=== PATIENT | male | born 2000 | race Caucasian/White ===

== ENCOUNTER 2022-12-18 17:14 | Inpatient (IN) ==
[2022-12-18] MEDS ORDERED: SODIUM CHLORIDE 0.9% 1000ML 1,000 ML IV ONE (17:28)
[2022-12-18] MEDS ORDERED: KETOROLAC TROMETHAMINE 15 MG/ML VIAL IV STA ×2 (17:28→18:59)
[2022-12-18] MEDS ORDERED: ONDANSETRON INJ 2 MG/ML 2 ML VIAL ONE (17:32)
[2022-12-18] MEDS ORDERED: ONDANSETRON INJ 2 MG/ML 2 ML VIAL IV STA (17:33)
[2022-12-18 18:45] LABS: BUN Creatinine Ratio 6.9 (10-20); Creatinine Clr Calc Pharmacy 138.9 ml/min; Est GFR (African American) 120.4 ml/min; Est GFR (Non-African American) 103.8 ml/min; Potassium 3.4 mmol/L (3.5-5.1)
--- NOTE | 2022-12-18 19:51 | Urology Consultation ---
Date of Consultation December 18, 2022 Assessment & Plan (1) Ureterolithiasis: Due to the imaging noted during patient's previous emergency department visit and his ongoing pain the treating emergency room physician is having admitted the hospital service. We recommend proceeding as follows: Provide analgesics Provide antiemetics Continue hydration measures with IV fluids Continue Flomax for expulsive therapy Recommend straining all urine so any past kidney stones can be properly analyzed There is no evidence of urinary tract infection so antibiotics should not be required at this time Recommend making the patient n.p.o. after midnight. If patient continues to have persistent pain that is unbearable cystoscopy may be required. At the present time he is afebrile, normotensive, without tachycardia, and afebrile. He also does not have leukocytosis on his previous labs and therefore an emergent procedure is not required. I did discuss with the patient there is a chance that he could pass the kidney stone overnight. If he is able to pass the kidney stone procedure intervention will not be required Additional recommendations be forthcoming based on his clinical course as unfolds Supervising Physician Co-Signing Physician Notes Discussed patient with SATINDER. Agree with plan. Reviewed patients chart. 4mm mid to distal right ureteral calculus. Would typically recommend medical expulsive therapy given size and location, however patient's pain is not tolerated. Reasonable to re-evaluate in the morning and offer stent, however this likely will also cause discomfort and patient will need second procedure for stone treatment in the future if stented. History of Present Illness Reason for Consultation: Nephrolithiasis History of Present Illness This is a 22-year-old male who presented to [facility] emergency department earlier today secondary to right lower quadrant abdominal pain that began at approximately that began earlier this morning. The patient says he has never had pain this severe before. He did admit to some slight right flank pain. He had associated nausea and vomiting but did not have any fevers. He did admit to an occasional shake or chill. He denies any dysuria or hematuria. Because of this problem he presented to the emergency department. During the patient's previously noted emergency department visit earlier today he underwent a CT scan that showed patient had a 4 mm calcification in the distal right ureter consistent with a nephrolithiasis. There is no associated hydronephrosis. Labs during this visit include a CBC were white blood cell count, hemoglobin, hematocrit, and platelet count were normal. Chemistry profile showed sodium, potassium, BUN, and creatinine were normal. Urinalysis at that time was negative for nitrites and did show trace leukocyte Estrace. There were 5-10 white blood cells per high-power field but no bacteria. During this visit the patient was treated with analgesics and antiemetics. In addition the patient was given Flomax for expulsive therapy. He was discharged home with prescriptions for oxycodone, ibuprofen, Flomax, and Zofran. He was instructed to follow-up with [facility] physician group urology. Since discharge from the emergency department the patient says that he was initially doing well on to have his pain as described above returned in a similar fashion. He said that the pain was unbearable so he presented to the hospital again. He again denies any fevers but has had occasional shakes and chills. He has associated nausea and vomiting when the pain comes. He does note that the pain comes and goes in waves. Again he denies any dysuria or bg turia. The patient did have a repeat chemistry profile since arrival to the emergency department where sodium was 137 and his potassium was 3.4. BUN and creatinine remain normal. A COVID test is negative. Since arrival back to the emergency department he has been given analgesics and IV fluids and due to the unremitting nature of the pain he is requesting admission to the hospital. Concerning past surgical history the patient reports he has had an appendectomy The patient denies any past medical problems. He denies any allergies He is a non-smoker Allergies Allergy/AdvReac Type Severity Reaction Status Date / Time No Known Allergies Allergy Verified 12/18/22 18:54 Home Medications Medication Instructions Recorded Confirmed Type ibuprofen 800 mg tablet 800 mg PO Q8H PRN pain #30 tabs 12/18/22 12/18/22 Rx ondansetron 4 mg disintegrating 4 mg PO Q6H PRN nausea and 12/18/22 12/18/22 Rx tablet vomiting #14 tabs oxycodone 5 mg tablet 5 mg PO Q4H PRN pain #14 tabs 12/18/22 12/18/22 Rx tamsulosin 0.4 mg capsule 0.4 mg PO DAILY #10 caps 12/18/22 12/18/22 Rx Patient History Social History Smoking Status: Never smoker Preferred Language: Ecuadorean Feels Safe at Home: Yes Review of Systems Constitutional: + chills; no fever Eyes: + corrective lenses Ear, Nose, Mouth, Throat: no ear pain Respiratory: no cough and no dyspnea Cardiovascular: no chest pain Gastrointestinal: + abdominal pain, + nausea and + vomiting Genitourinary: + as per Subjective / HPI Musculoskeletal: + back pain (Intermittent right flank pain) Integumentary: no rash Neurologic: no generalized weakness Physical Exam Constitutional: WD/WN, vitals as above Eyes: no conjunctival abnormality ENMT: Ears: no hearing impairment and no external ear abnormality Mouth: no oropharynx abnormality Neck: trachea midline Respiratory: normal respiratory effort; no respiratory distress and no labored breathing Cardiovascular: Rate/Rhythm: regular rate and regular rhythm Gastrointestinal (Abdomen): Abdomen is soft, nonrigid, nondistended. At the time of my interview there is no rebound tenderness or guarding. There is no pain with palpation except for slight pain in the right lower quadrant with palpation. There is no CVA tenderness to percussion bilaterally. Musculoskeletal: No calf tenderness Skin: no rashes Neurologic: moves all extremities Psychiatric: A+Ox3, euthymic affect Results & Data Vital Signs (Past 12 Hours) Vital Signs Temp Pulse Pulse Resp BP BP Pulse Ox 12/18/22 19:14 65 20 157/83 H 99 12/18/22 17:28 65 20 100 12/18/22 17:28 20 98 12/18/22 17:21 36.4 C L 88 26 H 158/72 H 100 O2 Del Method 12/18/22 19:14 Room Air 12/18/22 17:28 Room Air 12/18/22 17:28 Room Air 12/18/22 17:21 Room Air PG Care Time/CCT Total # of Minutes Spent Total Time Spent with Patient: Total time spent is greater than 50% in coordination of care (as documented) at patient's floor/unit and/or counseling patient: Coding Level of Care Code 69017 IN/OBS CONSULT LVL 5,80M Diagnoses Ureterolithiasis N20.1
[2022-12-18] MEDS ORDERED: BACLOFEN 10 MG TAB PO STA (21:06)
--- NOTE | 2022-12-18 21:59 | Emergency Department Note ---
History of Present Illness General Chief Complaint: Kidney Stone Stated Complaint: KIDNEY STONE,FEEL NEAR SYNCOPE,UNABLE TO MOVE HAND Time Seen by Provider: 12/18/22 17:28 History of Present Illness Provider Complaint: flank pain (R) Onset (ago): 1 day(s) Pain Consistency: constant Location: R flank Radiation: RLQ Maximum Pain Intensity: 6 Current Pain Intensity: 6 Quality: + stabbing and + sharp Relieved By: + nothing Exacerbated By: + nothing Context: no foreign travel, no possible food poisoning, no sick contacts, no recent antibiotic use, no recent surgery/procedure or no recent injury Associated Symptoms: + nausea and + vomiting; no fever, no chills, no constipation, no dysuria, no hematemesis, no hematochezia, no melena, no hematuria and no headache Patient states he was seen here today and diagnosed with kidney stone. Home Medications Medication Instructions Recorded Confirmed Type ibuprofen 800 mg tablet 800 mg PO Q8H PRN pain #30 tabs 12/18/22 12/18/22 Rx ondansetron 4 mg disintegrating 4 mg PO Q6H PRN nausea and 12/18/22 12/18/22 Rx tablet vomiting #14 tabs oxycodone 5 mg tablet 5 mg PO Q4H PRN pain #14 tabs 12/18/22 12/18/22 Rx tamsulosin 0.4 mg capsule 0.4 mg PO DAILY #10 caps 12/18/22 12/18/22 Rx Allergies Allergy/AdvReac Type Severity Reaction Status Date / Time No Known Allergies Allergy Verified 12/18/22 18:54 Past Med/Surg History Medical History Hydronephrosis due to obstruction of ureter No pertinent family history Surgical History No pertinent past surgical history Social History Smoking Status: Never smoker Preferred Language: Malay Feels Safe at Home: Yes Physical Exam Vital Signs: Vital Signs - 24 hr 12/18/22 17:21 12/18/22 17:28 12/18/22 17:28 Temperature 36.4 C L Temperature Source Temporal Artery Sc an Pulse Rate 88 65 Pulse Rate [Finger ] Pulse Rhythm Regular Pulse Rhythm [Fing er] Pulse Strength [Fi nger] Respiratory Rate 26 H 20 20 Respiratory Effort / Characteristics Non-Labored Sponta neous Non-Labored Sponta neous Respiratory Depth Normal Normal Respiratory Patter n Blood Pressure 158/72 H Blood Pressure [Ri ght Arm] Blood Pressure Jeanine n 100 Blood Pressure Jeanine n [Right Arm] Blood Pressure Pos ition [Right Arm] Pulse Oximetry 100 98 100 Oxygen Delivery Me thod Room Air Room Air Room Air Sepsis Recent Feve r Within 48 Hours No Sepsis New/Unexpla ined Change in Men mak Status No Sepsis Action Take n by Nursing No Action Required 12/18/22 19:14 12/18/22 20:00 12/18/22 21:17 Temperature Temperature Source Pulse Rate Pulse Rate [Finger ] 65 79 68 Pulse Rhythm Pulse Rhythm [Fing er] Regular Regular Regular Pulse Strength [Fi nger] Normal Normal Normal Respiratory Rate 20 18 20 Respiratory Effort / Characteristics Non-Labored Sponta neous Non-Labored Sponta neous Non-Labored Sponta neous Respiratory Depth Normal Normal Normal Respiratory Patter n Regular Regular Regular Blood Pressure Blood Pressure [Ri ght Arm] 157/83 H 147/82 H 164/88 H Blood Pressure Jeanine n Blood Pressure Jeanine n [Right Arm] 107 103 113 Blood Pressure Pos ition [Right Arm] Sitting Sitting Sitting Pulse Oximetry 99 100 98 Oxygen Delivery Me thod Room Air Room Air Room Air Sepsis Recent Feve r Within 48 Hours Sepsis New/Unexpla ined Change in Men mak Status Sepsis Action Take n by Nursing Physical Exam: Physical Exam GENERAL: oriented to person, place, and time. appears well-developed and well- nourished. HENT: Exam performed. - Head: Normocephalic and atraumatic. EYES: Conjunctivae and EOM are normal. Right eye exhibits no discharge. Left eye exhibits no discharge. No scleral icterus. NECK: Normal range of motion. Neck supple. No JVD present. CV: Normal rate, regular rhythm, normal heart sounds and intact distal pulses. There is no peripheral edema. Palpable radial pulses bue. PULM/CHEST: Effort normal and breath sounds normal. No respiratory distress. No stridor. no wheezes. no rales. ABD: The abdomen is soft. There is no tenderness. NEURO: Motor and sensation grossly intact. SKIN: Skin is warm and dry. He is not diaphoretic. PSYCH: normal mood and affect. Behavior is normal. Judgment and thought content normal. Course Course 1728: The patient was evaluated in room B11. A complete history and physical exam was performed Cardiac monitoring: An order was placed for continuous cardiac monitoring. The monitor shows a rate of 70 with sinus rhythm interpreted by me 1900: Vital signs stable. Metabolic profile within normal limits. Patient states his pain is only mildly better with Toradol. Patient did not picking supervisor his home scripts that he was discharged with. Patient was offered discharge status post more analgesia or admission to the hospital for evaluation by urology. Patient states he does not feel comfortable going home because the pain is too much and wants to be admitted to the hospital. Discussed with Ilia Harding PA-C on for urology who states to admit to medicine. [facility] hospitalist team will be made aware. Administered Medications Discontinued Medications Baclofen (Baclofen 10 Mg Tab) 5 mg PO NOW STA Stop: 12/18/22 21:07 Last Admin: 12/18/22 21:16 Dose: 5 mg Documented By: NADEEM Sodium Chloride (Nss 1000ml) 1,000 mls @ 999 mls/hr IV .Q1H1M ONE Stop: 12/18/22 18:28 Last Infusion: 12/18/22 19:04 Dose: 0 mls/hr Documented By: Admin: 12/18/22 17:36 Dose: 999 mls/hr Documented By: BESS Ketorolac Tromethamine (Ketorolac Tromethamine 15 Mg/Ml Vial) 15 mg IV NOW STA Stop: 12/18/22 17:29 Last Admin: 12/18/22 17:34 Dose: 15 mg Documented By: BESS Ketorolac Tromethamine (Ketorolac Tromethamine 15 Mg/Ml Vial) 15 mg IV NOW STA Stop: 12/18/22 19:00 Last Admin: 12/18/22 19:09 Dose: 15 mg Documented By: NADEEM Ondansetron HCl (Ondansetron Inj 2 Mg/Ml 2 Ml Vial) Confirm Administered Dose 4 mg .ROUTE .STK-MED ONE Stop: 12/18/22 17:33 Last Admin: 12/18/22 17:35 Dose: Not Given Documented By: BESS Ondansetron HCl (Ondansetron Inj 2 Mg/Ml 2 Ml Vial) 4 mg IV NOW STA Stop: 12/18/22 17:34 Last Admin: 12/18/22 17:35 Dose: 4 mg Documented By: BESS Medical Decision Making Medical Records Attestation: I reviewed the patient's medical records. External medical records were reviewed. Patient was seen earlier in the day in the emergency department by another ER physician. Patient was discharged less than 6 hours prior to patient reevaluated in the emergency department. Patient's labs and urines which were done less than 6 hours ago were unremarkable and CT of the abdomen pelvis showed a 4 mm kidney stone in the distal ureter with no hydronephrosis Laboratory Data Attestation: I reviewed the patient's lab results. 12/18/22 17:38 Lab Results 12/18/22 12/18/22 Range/Units 17:38 17:38 Sodium 137 (136-145) mmol/L Potassium 3.4 L (3.5-5.1) mmol/L Chloride 101 (98-107) mmol/L Carbon Dioxide 20 L (21-32) mmol/L Anion Gap 16 H (3-11) BUN 7 (6-23) mg/dl Creatinine 1.02 (0.6-1.4) mg/dl Est Cr Clr Drug Dosing 138.9 ml/min Est GFR ( Amer) 120.4 ml/min Est GFR (Non-Af Amer) 103.8 ml/min BUN/Creatinine Ratio 6.9 L (10-20) Glucose 131 H (70-99(Fasting)) mg/dl Calcium 10.0 (8.6-10.3) mg/dl SARS-CoV-2, RNA, NAAT NEGATIVE (NEGATIVE) [facility] Narrative 1728: The patient was evaluated in room B11. A complete history and physical exam was performed Cardiac monitoring: An order was placed for continuous cardiac monitoring. The monitor shows a rate of 70 with sinus rhythm interpreted by me 1900: Vital signs stable. Metabolic profile within normal limits. Patient states his pain is only mildly better with Toradol. Patient did not picking supervisor his home scripts that he was discharged with. Patient was offered discharge status post more analgesia or admission to the hospital for evaluation by urology. P atient states he does not feel comfortable going home because the pain is too much and wants to be admitted to the hospital. Discussed with Ilia Harding PA-C on for urology who states to admit to medicine. [facility] hospitalist team will be made aware. Impression & Plan Ureterolithiasis Discharge Plan Visit Data Chief Complaint: Kidney Stone Stated Complaint: KIDNEY STONE,FEEL NEAR SYNCOPE,UNABLE TO MOVE HAND ED Provider: Jadon Feliciano Discharge Problem: Ureterolithiasis Patient Disposition: Being Evaluated by Hospitalist Forms Stand Alone Forms: [facility] Prescriptions Prescriptions: No Action oxycodone 5 mg tablet 5 mg PO Q4H PRN (Reason: pain) Qty: 14 0RF Rx Instructions: PER PT "DID NOT PAPER PATTERN INSPECTOR FROM PHARMACY" ibuprofen 800 mg tablet 800 mg PO Q8H PRN (Reason: pain) Qty: 30 0RF Rx Instructions: PER PT "DID NOT PAPER PATTERN INSPECTOR FROM PHARMACY" tamsulosin 0.4 mg capsule 0.4 mg PO DAILY Qty: 10 0RF Rx Instructions: PER PT "DID NOT PAPER PATTERN INSPECTOR FROM PHARMACY" ondansetron 4 mg tablet,disintegrating 4 mg PO Q6H PRN (Reason: nausea and vomiting) Qty: 14 0RF Rx Instructions: PER PT "DID NOT PAPER PATTERN INSPECTOR FROM PHARMACY" Referrals [facility] [Non-Staff[facility] -
--- NOTE | 2022-12-18 21:59 | History and Physical Report ---
DATE OF ADMISSION: 12/18/2022. CHIEF COMPLAINT: Right kidney stone. HISTORY OF PRESENT ILLNESS: This 22-year-old male with no significant past medical history presents with right flank pain started today morning, came to the ER earlier today. His imaging studies, CT scan showing 4 mm possible distal right ureteral stone. He was discharged on oxycodone, Flomax, Zofran, ibuprofen p.r.n., but after going home, pain came back severe, so he came back, seen by Urology. He is getting admitted for observation and possible cystoscopy if needed. The patient was given Toradol at this time and says its that not helping much and requesting something stronger pain medication. He says he micturated only once and he did not notice any blood in the urine. No burning micturition. No diarrhea or constipation. He says he vomited some black and brown stuff. Denies any chest pain, no shortness of breath, no fevers, no cough, no headaches, no sore throat. Currently, hemodynamically stable. He says he smokes marijuana a couple of times a week. Alcohol, a couple of times a month. ALLERGIES: No known drug allergies. PAST MEDICAL HISTORY: None. PAST SURGICAL HISTORY: Has appendectomy 5 years ago. MEDICATIONS: None. FAMILY HISTORY: No significant family history. SOCIAL HISTORY: Denies smoking. Smokes marijuana a couple of times a week. Alcohol, a couple of times a month. REVIEW OF SYSTEMS: As per HPI. Rest of the review of systems is negative. PHYSICAL EXAMINATION: GENERAL: The patient is of moderate build, not in acute distress. VITAL SIGNS: Temperature 36.4, pulse 79, respiratory rate 18, blood pressure 147/82, oxygen 100% on room air. HEENT: Pupils equal, round and reactive to light. Oral mucosa moist. NECK: No JVD, no neck masses. CARDIOVASCULAR: S1 and S2 heard. Regular rate and rhythm. No murmur, no gallop. RESPIRATORY SYSTEM: Normal AP diameter. No accessory muscle use. No wheezing, no crackles. ABDOMEN: Soft, bowel sounds present, nontender, no distention. CENTRAL NERVOUS SYSTEM: Cranial nerves II-XII grossly intact, nonfocal. EXTREMITIES: No edema, no erythema. LABORATORY DATA: sodium 137 potassium 3.4, chloride 101, bicarbonate 20, BUN 7, creatinine 1.02, serum glucose 131, calcium 10. SARS-CoV-2 rapid test negative. ASSESSMENT AND PLAN: This 22-year-old male presents with right renal colic. 1. Right renal colic. Ct scan in the ER was showing 4 mm possible distal ureteral stone. NPO, IV fluids, IV antiemetics, IV pain medication p.r.n. Urology consulted. Monitor and observe in the hospital. Further recommendations as per Urology. 2. Deep venous thrombosis prophylaxis: SCDs for now. DISPOSITION: Closely monitor in the medical floor. Expect to discharge home and follow with family doctor. Job ID: [id number] [facility]
[2022-12-18] MEDS ORDERED: ONDANSETRON INJ 2 MG/ML 2 ML VIAL IV PRN (22:21)
[2022-12-18] MEDS: D5W AND NSS 1,000 ML IV SCH (22:21)
[2022-12-18] MEDS ORDERED: ACETAMINOPHEN 325 MG TAB PO PRN (22:21)
[2022-12-18] MEDS ORDERED: oxyCODONE HCL IR 5 MG TAB (IMMEDIATE RELEASE) PO PRN (22:21)
[2022-12-18] MEDS: HYDROmorphone INJ 0.5 MG/0.5 ML SYR IV PRN (22:56)
[2022-12-18] MEDS: POTASSIUM CHLORIDE / WTR 10 MEQ/100 ML PLCT IV SCH (22:56)
[2022-12-19] MEDS: POTASSIUM CHLORIDE / WTR 10 MEQ/100 ML PLCT IV SCH (00:03)
[2022-12-19] MEDS: D5W AND NSS 1,000 ML IV SCH ×2 (05:59→14:02)
[2022-12-19] MEDS: HYDROmorphone INJ 0.5 MG/0.5 ML SYR IV PRN ×2 (06:22→14:02)
--- NOTE | 2022-12-19 07:10 | Communication Note ---
Date of Service: December 19, 2022 Filiberto says he has black and brown vomitus. Will check hemeoccult gastric contents. Follow labs. IV protonix. Thanks
[2022-12-19] MEDS: PANTOprazole 40 MG in SYRINGE 0 ML IV SCH ×2 (07:48→21:35)
[2022-12-19] MEDS ORDERED: TAMSULOSIN HCL 0.4 MG CAP PO SCH (09:00)
--- NOTE | 2022-12-19 09:42 | Urology Progress Note ---
Date of Service December 19, 2022 Assessment & Plan (1) Acute right flank pain: (2) Ureterolithiasis: Plan: Follow-up of 4 mm mid right ureteral stone. He is afebrile and hemodynamically stable. Continues to have intermittent pain, nausea/vomiting. Labs reviewednormal creatinine and no leukocytosis on arrival, no new labs at time of visit this morning We discussed options for stone management including medical expulsive therapy versus surgical intervention with right ureteral stent placement and possible stone treatement today. We discussed that stone may need to be treated at a later date. Ureteral stents were discussed in detail. We discussed options for outpatient surgical intervention if pain can be controlled. After discussion, he would like me to return when his mother will be present. We will keep NPO at present time. Continue supportive care and management per hospital medicine. Discussed above options again with patient and his mother when she arrived. After discussion, patient wishes to proceed with surgical intervention today. Will proceed with Cystoscopy, right retrograde pyelogram, right ureteroscopy, laser lithotripsy, stone basketing, possible ureteral dilation and right ureteral stent placement. OR notified. Will cover with IV ceftriaxone preoperatively. Admission and Anticipated Discharge Date Admission Date: December 18, 2022 Supervising Physician Co-Signing Physician Notes I have discussed Mr. Ochoa's case with CAROLINA Chadwick and agree with the above documentation. Pain control has been an issue at home, therefore we will plan to proceed with right ureteral stent placement, possible ureteroscopy and stone removal. Risks include bleeding, infection, injury to urinary tract, inability to place stent, need for additional procedures. Subjective Patient seen and examined at bedside this morning. He is awake, alert and sitting up in bed. No acute issues overnight. Reports intermittent right flank discomfort. Currently 1 or 2 out of 10 pain, after recently receiving dose of hydromorphone. He reports episode of nausea/vomiting overnight, but no nausea or vomiting at present. He is voiding spontaneously without difficulty, no dysuria or hematuria. No fever or chills. He is currently NPO. Review of Systems Constitutional: as per Subjective / HPI Gastrointestinal: as per Subjective / HPI Genitourinary: + as per Subjective / HPI Physical Exam Constitutional: well developed and well nourished; no acute distress and not ill appearing Neck: normal visual inspection Respiratory: normal respiratory effort and able to speak in complete sentences; no respiratory distress and no labored breathing Cardiovascular: Extremities: no pedal edema Gastrointestinal (Abdomen): Inspection/Auscultation: abdomen normal to inspection; abdomen not distended Musculoskeletal: Head/Neck/Chest: normocephalic and head atraumatic Neurologic: moves all extremities and awake Psychiatric: Orientation: alert, oriented x 3 and cooperative Results & Data Vital Signs (Past 12 Hours) Vital Signs Temp Pulse Resp BP Pulse Ox O2 Del Method 12/19/22 07:17 37.0 C 86 16 144/75 H 97 Room Air 12/18/22 22:24 Room Air 12/18/22 22:24 Room Air 12/18/22 22:24 36.8 C 68 20 163/89 H 100 Room Air 12/18/22 22:24 36.8 C 68 20 163/89 H 100 Room Air PG Care Time/CCT Total # of Minutes Spent Total Time Spent with Patient: Total time spent is greater than 50% in coordination of care (as documented) at patient's floor/unit and/or counseling patient: Coding Level of Care Code 84365 SUB INP/OBS CARE 2/35MIN Diagnoses Acute right flank pain R10.9 Ureterolithiasis N20.1
--- NOTE | 2022-12-19 14:37 | Anesthesiology Consultation ---
Date of Service December 19, 2022 Assessment & Plan (1) Encounter for pre-operative examination: Chart Review Chart Review: Acceptable Risk for Surgery History Surgery Operation Date: 12/19/22 10:20 Proposed Procedures p Cystoscopy, Right Retrograde Pyelogram, Laser Lithotripsy, Stent Placement - Right - Aravind Godfrey MD Height/Weight Height: 6 ft 1 in Weight: 99.2 kg Allergies Allergy/AdvReac Type Severity Reaction Status Date / Time No Known Allergies Allergy Verified 12/18/22 18:54 Medications Home Medications Medication Instructions Recorded Confirmed Last Taken ibuprofen 800 mg tablet 800 mg PO Q8H PRN pain #30 tabs 12/18/22 12/18/22 Unknown ondansetron 4 mg disintegrating 4 mg PO Q6H PRN nausea and 12/18/22 12/18/22 Unknown tablet vomiting #14 tabs oxycodone 5 mg tablet 5 mg PO Q4H PRN pain #14 tabs 12/18/22 12/18/22 Unknown tamsulosin 0.4 mg capsule 0.4 mg PO DAILY #10 caps 12/18/22 12/18/22 Unknown Active Medications Generic Name Dose Route Start Last Admin Trade Name Freq PRN Reason Stop Dose Admin Hydromorphone HCl 0.5 mg 12/18/22 22:21 12/19/22 14:02 Hydromorphone Inj 0.5 Mg/0.5 Ml Syr IV 01/01/23 22:20 0.5 mg Q3H PRN Administration Severe Pain (Scale 7, 8, 9,10) Dextrose/Sodium Chloride 1,000 mls @ 125 mls/hr 12/18/22 22:21 12/19/22 14:02 D5w And Nss IV 01/17/23 22:20 125 mls/hr .Q8H ALEK Administration Pantoprazole Sodium 40 mg/ 10 mls @ 5 mls/min 12/19/22 07:30 12/19/22 07:48 Syringe IV 01/18/23 07:29 5 mls/min BID ALEK Administration Ondansetron HCl 4 mg 12/18/22 22:21 12/18/22 22:56 Ondansetron Inj 2 Mg/Ml 2 Ml Vial IV 01/17/23 22:20 4 mg Q6H PRN Administration Nausea Tamsulosin HCl 0.4 mg 12/19/22 09:00 12/19/22 07:49 Tamsulosin Hcl 0.4 Mg Cap PO 01/18/23 08:59 0.4 mg DAILY ALEK Administration NPO Date Last Intake of Fluids: 12/18/22 Time Last Intake of Fluids: 23:59 Date Last Intake of Solids: 12/18/22 Time Last Intake of Solids: 23:59 Past Medical History Medical History (Updated 12/19/22 @ 14:37 by Jason Rubio MD) Hydronephrosis due to obstruction of ureter Past Family History no pertinent family history Past Surgical History Surgical History No pertinent past surgical history Social History Smoking Status: Never smoker Do You Dip or Chew Tobacco: No Hx Alcohol Use: Yes Alcohol type: beer alcohol intake frequency: a few times a month Hx Substance Use: Yes substance use type: marijuana Last Used Substance: Days (ago) Physical Exam Vital Signs Last Vital Signs Temp 37.0 C 12/19/22 07:17 Pulse 86 12/19/22 07:17 Resp 16 12/19/22 07:17 BP 144/75 H 12/19/22 07:17 Pulse Ox 97 12/19/22 07:17 O2 Del Method Room Air 12/19/22 07:17 Testing Laboratory Results 12/18/22 17:38
[2022-12-19] MEDS ORDERED: cefTRIAXone SODIUM 1,000 MG in DEXTROSE 5% AD-VAN 50 ML IV ONE (15:00)
[2022-12-19] MEDS ORDERED: cefTRIAXone SODIUM 2,000 MG/70 ML BAG IV SCH (15:00)
[2022-12-19] MEDS ORDERED: ATROPINE SULFATE 0.1 MG/ML 10ML SYR IV PRN (15:18)
[2022-12-19] MEDS ORDERED: HYDROmorphone INJ 1 MG/ML SYRINGE IV PRN (15:18)
[2022-12-19] MEDS ORDERED: ePHEDrine sulfate 50 MG/ML AMP IV PRN (15:18)
[2022-12-19] MEDS ORDERED: fentaNYL citrate PF 100 MCG/2 ML VIAL IV PRN (15:18)
[2022-12-19] MEDS ORDERED: ONDANSETRON INJ 2 MG/ML 2 ML VIAL IV PRN (15:18)
[2022-12-19] MEDS ORDERED: fentaNYL citrate PF 100 MCG/2 ML VIAL ONE ×2 (16:02→16:52)
[2022-12-19] MEDS ORDERED: LIDOCAINE 2% MPF LOCAL 5 ML VIAL ONE (16:03)
[2022-12-19] MEDS ORDERED: MIDAZOLAM HCL 1 MG/ML 2ML VIAL ONE (16:03)
[2022-12-19] MEDS ORDERED: PROPOFOL IV EMULSION 10 MG/ML 20 ML VIAL IV ONE (16:03)
[2022-12-19] MEDS ORDERED: DEXAMETHASONE SOD INJ 4 MG/ML VIAL ONE (16:03)
[2022-12-19] MEDS ORDERED: ONDANSETRON INJ 2 MG/ML 2 ML VIAL ONE (16:03)
[2022-12-19] MEDS ORDERED: KETOROLAC 30 MG/ML VIAL ONE (16:40)
[2022-12-19] MEDS ORDERED: KETAMINE 50 MG/5 ML SYRINGE ONE (16:41)
[2022-12-19] MEDS ORDERED: DIATRIZOATE MEGLUMINE 30% 100ML VIAL INSTIL ONE (17:09)
--- NOTE | 2022-12-19 17:09 | Operative Report ---
PG Post Operative Report Pre & Post Diagnosis Operation Date: 12/19/22 10:20 Preoperative diagnosis: Right ureteral stone Postoperative diagnosis: Right ureteral stone I identified the patient and participated in the time-out.: Yes Procedure Operation Date: 12/19/22 10:20 Cystoscopy, right retrograde pyelogram, right ureteroscopy, basket extraction of stone, right ureteral stent placement Surgeon Aravind Godfrey MD Steward/Stewardess Tourist Class None Estimated Blood Loss 0 Findings See Below Somewhat tight distal ureter. Stone visualized in the mid ureter at the level of the him, grasped and removed with a Nitinol wire basket. Successful right ureteral stent placement. Strings left attached to facilitate removal by the patient. Specimens Right ureteral stone for chemical analysis Drains 6 [place] Citizen by 26 cm double-J ureteral stent in the right ureter, strings attached to facilitate removal by the patient. Anesthesia Type General Complications none Disposition Accompanied Patient To Recovery: Yes Disposition: Recovery Room Indications This is a 22-year-old male who presented to the emergency department with right- sided flank pain and was found to have a 3 to 4 mm right mid ureteral stone. He presents to the OR today due to ongoing uncontrolled pain. Description of Procedure The patient was identified in the holding area and informed consent was confirmed. He was marked on the right side, then was taken to the operating room where general anesthesia was initiated. He was placed in the dorsal lithotomy position with all pressure points appropriately padded. He was prepped and draped in the usual sterile fashion and a preoperative timeout was performed. A well-lubricated cystoscope was inserted per urethra and panendoscopy was performed. The pendulous urethra was normal with no strictures or mucosal abnormalities. The prostate was of normal size. His bladder appeared grossly normal with no tumors or stones appreciated. Ureteral orifices were in orthotopic position bilaterally A 5 [place] Citizen open-ended catheter was inserted and intubated into the right ureteral orifice. Using Cystografin, a retrograde pyelogram was performed. The distal ureter was normal in course and caliber. There was some narrowing at the level of the pelvic brim. When the contrast drained there was a shadow at this area suspicious for the stone. A 0.038 inch zip wire was advanced up to the kidney under fluoroscopic guidance. It met some resistance at the mid ureter, again suggesting the stone. The semirigid ureteroscope was then inserted. Using a second wire to prop open the ureteral orifice, this was advanced up into the ureter. Just below the pelvic brim, no stones could be visualized and I cannot make the angle of the to assess any more proximally. A second wire was left in place. Over this, a flexible ureteroscope was advanced. There was some resistance in the distal ureter which could be bypassed with some gentle pressure. At the level of the pelvic brim, the culprit stone was visualized. A Nitinol wire basket was used to grasp and withdraw the stone, again meeting some resistance in the distal ureter. Once the stone was removed, it was sent for analysis labeled as right ureteral stone. The flexible ureteroscope was reintroduced and used to survey the distal ureter. There was some mucosal irritation but no significant splinting appreciated. No additional stones were appreciated. The cystoscope was reinserted over the wire, then a 6 [place] Citizen x 26 centimeter double-J ureteral stent was advanced. When the wire was removed, the proximal curl was visualized in the kidney with x-ray, and the distal curl visualized in the bladder with the cystoscope. Strings were left attached to the stent to fac ilitate removal by the patient at home. At this point the bladder was drained and all instrumentation was removed. The stent strings were secured to the dorsal aspect of the penis using benzoin and Steri-Strips. The patient was then awakened from anesthesia and was brought to the PACU in stable condition. I attest to the content of the Intraoperative Record and any orders documented therein. Any exceptions are noted below.
--- NOTE | 2022-12-19 17:17 | Discharge Summary ---
Date of Service December 19, 2022 Admission HPI Per Admitting Provider This 22-year-old male with no significant past medical history presents with right flank pain started today morning, came to the ER earlier today. His imaging studies, CT scan showing 4 mm possible distal right ureteral stone. He was discharged on oxycodone, Flomax, Zofran, ibuprofen p.r.n., but after going home, pain came back severe, so he came back, seen by Urology. He is getting admitted for observation and possible cystoscopy if needed. The patient was given Toradol at this time and says its that not helping much and requesting something stronger pain medication. He says he micturated only once and he did not notice any blood in the urine. No burning micturition. No diarrhea or constipation. He says he vomited some black and brown stuff. Denies any chest pain, no shortness of breath, no fevers, no cough, no headaches, no sore throat. Currently, hemodynamically stable. He says he smokes marijuana a couple of times a week. Alcohol, a couple of times a month. Admission Exam Per Admitting Provider GENERAL: The patient is of moderate build, not in acute distress. VITAL SIGNS: Temperature 36.4, pulse 79, respiratory rate 18, blood pressure 147/82, oxygen 100% on room air. HEENT: Pupils equal, round and reactive to light. Oral mucosa moist. NECK: No JVD, no neck masses. CARDIOVASCULAR: S1 and S2 heard. Regular rate and rhythm. No murmur, no gallop. RESPIRATORY SYSTEM: Normal AP diameter. No accessory muscle use. No wheezing, no crackles. ABDOMEN: Soft, bowel sounds present, nontender, no distention. CENTRAL NERVOUS SYSTEM: Cranial nerves II-XII grossly intact, nonfocal. EXTREMITIES: No edema, no erythema. Principal Diagnosis Right ureteral stone status post right cystoscopy with stent placement Discharge Exam Constitutional: WD/WN, vitals as above, NAD, sitting up in bed, pleasant, conversing easily Respiratory: normal respiratory effort, lungs clear to auscultation, no wheeze, rales, rhonchi. Normal insp/exp effort, no accessory muscle use Cardiovascular: RRR, no murmur, no edema Vessels: no JVD or carotid bruit Chest: normal inspection of chest Abdomen: Soft, nontender. Musculoskeletal: no cyanosis or clubbing, extremities motor strength 5/5 Skin: no rashes, warm and dry normal turgor Neurologic: PERRL, EOMI, accommodation nl, no face palsy, no dysarthria CN's II- XI intact bilaterally and moves all extremities Psychiatric: A+Ox3, euthymic affect Lymphatic: no cervical or axillary lymphadenopathy : deferred Discharge Data Allergies Allergy/AdvReac Type Severity Reaction Status Date / Time No Known Allergies Allergy Verified 12/18/22 18:54 Consultations 12/18/22 19:00 ED Decision to Admit Stat 12/19/22 04:12 Consult Urology Routine Procedures Performed Operation Date: 12/19/22 10:20 Actual Procedures p Cystoscopy, Right Retrograde Pyelogram, Stent Placement, basket extraction of stone - Right(Right) - Aravind Godfrey MD Ordered Studies 12/19/22 [place] retrograde includes kub Routine Hospital Course (1) Acute right flank pain: (2) Ureterolithiasis: Plan Patient is a 22-year-old male with no significant past medical history presented to the ED with right flank pain since 1 day. In the ED, CT abdomen was done which showed 4 mm right distal ureteral stone. Initially, he was discharged from the emergency department; but came back after pain got severe. He was admitted to medical floor for further management. He was started on IV fluid, analgesics and tamsulosin. Urology was consulted. Patient underwent cystoscopy with placement of right ureteral stent on 12/19. Patient was cleared from urological standpoint to be discharged. Patient to follow-up with urology as outpatient. Total Time Total Time Spent Total Time Spent (In Minutes): 35 Total Time Includes: Examination of the Patient, Discharge Planning, Medication Reconciliation, Communication With Other Providers and Other Discharge Plan Discharge Items Patient Disposition: Home - Self-Care Reason For Visit: KIDNEY STONE Discharge Diagnosis: Right ureteral stone status post Activity: Resume your previous activity Non-emergency contact: Primary Care Provider Call non-emergency contact if: you have any medication questions and your symptoms worsen Follow-up/Referrals: PCP,NO [Primary Care Provider] - Diet: Regular Addtl Attending Provider Instructions: You were admitted to the hospital with right-sided ureteral stone. He underwent ureteroscopy with basket extraction of the stone and stent placement. Please follow the instruction provided by the urologist below Addtl Gathering Worker Provider Instructions: The surgery you had was ureteroscopy with basket extraction of the stone and stent placement. The strings were left attached to the stent. You can remove this on 12/22/2022. To do so, gently grasped the strings and pull. please remember to take your dose of antibiotics 1 hour before this. Please take all medications as prescribed and keep all follow-ups as scheduled. Please call our office at [phone] with any questions, concerns or need to reschedule appointments for any reason. We are happy to assist you. Medications: please resume your normal medications as previously prescribed. You have been prescribed a single dose of antibiotics (Bactrim). Take this 1 hour prior to stent removal. For pain, it is ok to take tylenol alternating with ibuprofen. You can also take AZO, which can be purchased [id number]-cantdyo at the drugstore. Be aware this turns your urine a bright orange color. If you are prescribed a stronger medication you can take this according to instructions on the label. What to expect after your ureteroscopy and stone removal procedure: You may notice small pieces of stone or stone dust/gravel in your urine over the next few days. Drink plenty of liquids to help flush your system. You may notice some blood in your urine. As long as you are able to urinate, this is ok. You have a ureteral stent in place - this will need to be removed. As long as the stent is in place, you may see some blood in the urine. You may have pain in your side when you urinate. Strings were left in place on the stent. You can remove the stent on 12/22/2022. To do this, take your antibiotic, then after 1 hour, pull gently on the strings that are coming from your urethra. The stent is approximately 10 inches long. When to call [facility] at [phone]: Fever of 101F or higher Heavy bleeding Pain that is not controlled with medicine Uncontrolled vomiting Problems urinating or inability to urinate Pending Studies at Discharge: No Stand-Alone Forms: My SuppreMol, Smoking Cessation Medications and DC Order Prescriptions: New sulfamethoxazole-trimethoprim [Bactrim DS] 800-160 mg tablet 1 tab PO ONCE 1 Days Qty: 1 0RF Rx Instructions: Take 1 hour prior to stent removal Continued oxycodone 5 mg tablet 5 mg PO Q4H PRN (Reason: pain) Qty: 14 0RF Rx Instructions: PER PT "DID NOT FUNCTIONAL SUPPORT ANALYST FROM PHARMACY" ibuprofen 800 mg tablet 800 mg PO Q8H PRN (Reason: pain) Qty: 30 0RF Rx Instructions: PER PT "DID NOT FUNCTIONAL SUPPORT ANALYST FROM PHARMACY" tamsulosin 0.4 mg capsule 0.4 mg PO DAILY Qty: 10 0RF Rx Instructions: PER PT "DID NOT FUNCTIONAL SUPPORT ANALYST FROM PHARMACY" ondansetron 4 mg tablet,disintegrating 4 mg PO Q6H PRN (Reason: nausea and vomiting) Qty: 14 0RF Rx Instructions: PER PT "DID NOT FUNCTIONAL SUPPORT ANALYST FROM PHARMACY" Admission Data Admit Date/Time: 12/18/22 21:06 Attending Provider: Arnoldo Cherry Admit Provider: Chuck Feng Primary Care Provider: PCP,NO Other Providers: Chuck Feng ; Philippe Martínez ; Dmitri Weston ; Chris Pavon ; Fely Muñoz ; Lester Garcia ; Dedra Fisher Melissa A. ; Aravind Godfrey ; Adelita Garrido ; Sarah Agosto ; Geo Roe ; Jesus Syed
--- NOTE | 2022-12-19 18:18 | Fluoroscopy Report ---
FL retrograde includes kub CLINICAL HISTORY: RIGHT SIDE TECHNIQUE: 5 views were obtained with the C-arm in the OR with the above procedure. Total fluoroscopy time was 12 seconds. Radiation dose was 2.64 mGy. Comparison: Comparison is made to CT abdomen pelvis 12/18/2022 FINDINGS/IMPRESSION: Intraoperative images were obtained of right sided retrograde pyelogram with zander nt placement, and the final image the stent is in satisfactory position. Please correlate with intraoperative fluoroscopy and operative report. ACT 112: Negative or not required by law. Electronically signed by: Jackson Gunderson M.D. 12/19/2022 6:17 PM
--- NOTE | 2022-12-19 18:40 | Anesthesiology Progress Note ---
Date of Service December 19, 2022 Anesthesia Post Procedure Vital Signs Vital Signs: Temp Pulse Pulse Resp BP BP Pulse Ox 12/19/22 18:39 36.8 C 102 H 16 136/82 96 12/19/22 18:10 37.2 C 112 H 18 140/82 96 12/19/22 17:55 36.8 C 106 H 14 134/81 95 12/19/22 17:45 120 H 17 133/80 94 12/19/22 17:35 120 H 19 136/80 100 12/19/22 17:25 114 H 13 131/80 100 12/19/22 17:18 36.2 C L 100 H 16 137/76 98 12/19/22 15:02 36.7 C 103 H 18 147/88 H 99 12/19/22 07:17 37.0 C 86 16 144/75 H 97 12/18/22 22:24 12/18/22 22:24 12/18/22 22:24 36.8 C 68 20 163/89 H 100 12/18/22 22:24 36.8 C 68 20 163/89 H 100 12/18/22 21:17 68 20 164/88 H 98 12/18/22 20:00 79 18 147/82 H 100 12/18/22 19:14 65 20 157/83 H 99 O2 Del Method O2 Flow Rate 12/19/22 18:39 Room Air 12/19/22 18:10 Room Air 12/19/22 17:55 Room Air 12/19/22 17:45 Room Air 12/19/22 17:35 Oxymask 5 12/19/22 17:25 Oxymask 5 12/19/22 17:18 Oxymask 5 12/19/22 15:02 Room Air 12/19/22 07:17 Room Air 12/18/22 22:24 Room Air 12/18/22 22:24 Room Air 12/18/22 22:24 Room Air 12/18/22 22:24 Room Air 12/18/22 21:17 Room Air 12/18/22 20:00 Room Air 12/18/22 19:14 Room Air Pain Intensity Right Lower Abdomen: Pain Intensity: 8 Penis: Pain Intensity: 3 Transfer of Care Handoff Completed per policy Notes Mental Status: alert / awake / arousable and participated in evaluation Patient Amnestic to Procedure: Yes Nausea / Vomiting: adequately controlled Pain: adequately controlled Airway Patency, RR, SpO2: stable & adequate BP & HR: stable & adequate Hydration State: stable & adequate Anesthetic Complications: no major complications apparent and Pt Satisfied with anesthetic care
== END 2022-12-19 22:01 | disposition home or self-care (01) | DRG 661 ==
LOC: ED 17:14 → 3E 21:06